=== PATIENT | male | born 1975 | race Caucasian/White ===

== ENCOUNTER 2018-03-06 07:05 | Emergency (ER) | payer OTHER ==
--- NOTE | 2018-03-06 07:37 | UC ---
Bite Injury/Animal HPI - HPI Summary HPI Summary: WORKS AT A [employer]. 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 TDAP BOOSTED 09/22/15 - History of Current Complaint Chief Complaint: UCBiteInjury Stated Complaint: CAT BITE Time Seen by Provider: 03/06/18 07:21 Hx Obtained From: Patient Severity Currently: Mild Severity Initially: Mild Pain Intensity: 1 Pain Scale Used: 0-10 Numeric Onset/Duration: Sudden Onset, Lasting Hours, Still Present Type of Bite: Pet Has Animal Been Immunized?: Yes Character: Puncture Aggravating Factor(s): Nothing Alleviating Factor(s): Nothing Associated Signs And Symptoms: Negative: Fever, Erythema, Drainage Animal Available for Observation: Yes - Allergies/Home Medications Allergies/Adverse Reactions: Allergies Allergy/AdvReac Type Severity Reaction Status Date / Time No Known Allergies Allergy Verified 03/06/18 07:23 PMH/Surg Hx/FS Hx/Imm Hx Previously Healthy: Yes - Surgical History Surgical History: None - Family History Known Family History: Positive: Cardiac Disease - Social History Alcohol Use: None Substance Use Type: None Smoking Status (MU): Light Every Day Tobacco Smoker Amount Used/How Often: 10 cig./wk Review of Systems Constitutional: Negative Skin: Other - CAT BITE LEFT 3RD FINGER Respiratory: Negative Cardiovascular: Negative Gastrointestinal: Negative All Other Systems Reviewed And Are Negative: Yes Physical Exam Triage Information Reviewed: Yes Appearance: Well-Appearing, No Pain Distress, Well-Nourished Vital Signs: Initial Vital Signs Temp 99 F 03/06/18 07:23 Pulse 79 03/06/18 07:23 Resp 16 03/06/18 07:23 BP 176/114 03/06/18 07:23 Pulse Ox 99 03/06/18 07:23 Vital Signs Reviewed: Yes Eyes: Positive: Conjunctiva Clear ENT: Positive: Hearing grossly normal Neck: Positive: Supple Respiratory: Positive: No respiratory distress, No accessory muscle use Cardiovascular: Positive: Pulses Normal Abdomen Description: Positive: Soft Musculoskeletal: Positive: No Edema Neurological: Positive: Alert Psychological: Positive: Age Appropriate Behavior Skin: Positive: Other - PUNCTURE WOUNDS PAD OF LEFT 3RD FINGER AND ABRASION ON DORSAL SURFACE JUST PROXIMAL TO NAILBED. TENDER. NO DRAINAGE Bite Injury Course/Dx - Course Course Of Treatment: PT DECLINES XRAY TODAY. STATES HE IS NOT CONCERNED AT ALL ABOUT TUFT INJURY. UP TO DATE TETANUS AND ALSO HAS RECEIVED RABIES VACCINATION SERIES IN THE PAST WITH RECENT TITER. CAT AVAILABLE FOR OBSERVATION AND UTD VACCINATIONS. AUGMENTIN FOR 10 DAYS. OFFERED TX TO ED FOR DANGEROUSLY ELEVATED BP. PT DECLINES TRANSFER TO ED. ADVISED THAT HE COULD BE RISKING WORSENING OF HIS CONDITION THAT COULD POSE A THREAT TO HIS LIFE, HEALTH AND MEDICAL SAFETY. HE VERBALIZES UNDERSTANDING AND CONTINUES TO DECLINE TRANSFER. - Differential Dx/Diagnosis Provider Diagnoses: CAT BITE LEFT 3RD FINGER Discharge - Sign-Out/Discharge Documenting (check all that apply): Patient Departure - Discharge Plan Condition: Stable Disposition: HOME Prescriptions: Amoxicillin/Clavulanate TAB* [Augmentin TAB 875*] 875 mg PO BID #20 tab Patient Education Materials: Animal Bite (ED) Referrals: No Primary Care Phys,NOPCP [Primary Care Provider] - Additional Instructions: TAKE THE ANTIBIOTICS FOR THE FULL COURSE. OTC IBUPROFEN NEEDED FOR DISCOMFORT. SEEK FOLLOW-UP IF YOU DEVELOP SPREADING REDNESS OF THE SKIN, PURULENT DRAINAGE, FEVER, INCREASED PAIN OR ANY OTHER CONCERNING SYMPTOMS. YOUR REPEAT BLOOD PRESSURE WAS ELEVATED TODAY (170/95). THIS MAY BE PARTIALLY CONTRIBUTED TO BY YOUR ACUTE CONDITION BUT GIVEN HOW HIGH IT IS WOULD RECOMMEND TRANSFER TO ED FOR FURTHER EVALUATION. YOU HAVE DECLINED TRANSFER TO THE ED TODAY WITH THE UNDERSTANDING THAT YOUR CONDITION MAY WORSEN LEADING TO CONDITIONS SUCH STROKE, CARDIAC ARREST, /DISABILITY. CALL THE NUMBER BELOW FOR ASSISTANCE IN ESTABLISHING WITH A PCP An additional resource available to assist in finding the appropriate physician for your health care needs is [facility] ([facility]). You may contact them by calling [phone]. - Billing Disposition and Condition Condition: STABLE Disposition: Home
[2018-03-06 07:54] VITALS: BP 170/95
== END 2018-03-06 08:07 | disposition home or self-care (01) ==
LOC: UCEAST 07:05
DX: S61.233A Puncture wound without foreign body of left middle finger without damage to nail, initial encounter (principal); W55.01XA Bitten by cat, initial encounter; Y93.K9 Activity, other involving animal care; Y92.89 Other specified places as the place of occurrence of the external cause; Y99.0 Civilian activity done for income or pay; Z82.49 Family history of ischemic heart disease and other diseases of the circulatory system; F17.210 Nicotine dependence, cigarettes, uncomplicated
CPT/HCPCS: 99212; G0463